=== PATIENT | female | born 1940 | race Caucasian/White ===

== ENCOUNTER 2017-03-25 17:02 | Emergency (ER) | payer MEDICARE, OTHER ==
[2015-07-17 13:33] VITALS: BMI 20.3
[~2017-03-25 17:02] MED LIST: ALBUMINAR-25100 ML IV; ALEVE220 MG PO; ASPIRIN325 MG PO; DUONEB 2.5-0.5 M3 ML UPD; GAS-X80 MG PO; LASIX20 MG PO; LEVAQUIN500 MG PO; LEVOTHROID175 MCG PO; LOVENOX40 MG/0.4 SQ; MIRALAX17 GM PO; MORPHINE SULF5 MG/ML IV; ONDANSETRON4 MG/2 M3 IV; PROAIR HFA8.5 GM INH; PROTONIX40 MG PO; REGLAN10 MG PO; SYNTHROID125 MCG PO; TENORMIN25 MG PO; TYLENOL 8 HOUR650 MG PO; TYLENOL650 MG RC
[2017-03-25 18:23] LABS: BASOPHILS 0.2 % (0-2); EOSINOPHILS 0.8 % (0-7); HEMATOCRIT 43.4 % (36.0-48.0); IMMATURE GRANULOCYTES 0.3 % (0-5); LYMPHOCYTES 8.1 % (15-50); MCH 32.6 pg (26.0-34.0); MCHC 32.3 g/dL (31.0-37.0); MCV 100.9 fL (80.0-100.0); MEAN PLATELET VOLUME 9.4 fL (7.4-10.4); MONOCYTES 4.4 % (2-11); NEUTROPHILS 86.2 % (40-80); PLATELET COUNT 138 10x3/uL (130-400); RDW 13.5 % (11.5-14.5); WBC 6.2 10x3/uL (4.8-10.8)
[2017-03-25 18:34] LABS: ALBUMIN 3.7 g/dL (3.4-5.0); ANION GAP 10.6 mmol/L (8-16); BILIRUBIN - TOTAL 0.4 mg/dL (0.2-1.3); CALCIUM 9.3 mg/dL (8.5-10.1); CARBON DIOXIDE 31.9 mmol/L (21.0-32.0); CREATININE - SERUM 0.8 mg/dL (0.6-1.3); POTASSIUM - SERUM 4.5 mmol/L (3.5-5.1); PROTEIN - SERUM 7.2 g/dL (6.4-8.2)
[2017-03-25 18:37] LABS: TROPONIN-I 0.056 ng/mL (0.000-0.060)
== END 2017-03-25 21:39 | disposition home or self-care (01) ==
LOC: D.ER 17:02
PROVIDERS: Emergency Medicine
DX: R00.2 Palpitations (principal); R11.2 Nausea with vomiting, unspecified; R06.00 Dyspnea, unspecified; R07.9 Chest pain, unspecified

== ENCOUNTER → 2018-05-04 12:22 | Outpatient (CLI) | payer MEDICARE, OTHER ==
[2015-07-17 13:33] VITALS: BMI 20.3
== END | disposition home or self-care (01) ==
LOC: D.CT 12:22
DX: R31.9 Hematuria, unspecified (principal)

== ENCOUNTER → 2018-09-20 10:38 | Outpatient (CLI) | payer MEDICARE, OTHER ==
[2015-07-17 13:33] VITALS: BMI 20.3
== END | disposition home or self-care (01) ==
LOC: D.CT 09-16 14:00
DX: N28.89 Other specified disorders of kidney and ureter (principal)

== ENCOUNTER → 2019-01-04 08:31 | Outpatient (CLI) | payer MEDICARE, OTHER ==
[2015-07-17 13:33] VITALS: BMI 20.3
== END | disposition home or self-care (01) ==
LOC: D.MRI 08:31
PROVIDERS: ATTEND Family Medicine
DX: M54.5 Low back pain (principal)